=== PATIENT | male | born 1965 | race Caucasian/White ===

== ENCOUNTER 2025-04-26 08:53 | Emergency (ER) | payer OTHER ==
[2025-04-26] MEDS ORDERED: Ondansetron PF 4 MG/2 ML Vial ONE (09:42)
[2025-04-26 09:43] LABS: #Basophils 0.03 10x3/uL (0.0-0.2); #Eosinophils Less than 0.03 10x3/uL (0.0-0.5); #Monocytes 1.16 10x3/uL (0.0-1.1); #Neutrophils 19.97 10x3/uL (1.5-8.4); %Basophils 0.1 % (0.0-2.0); %Eosinophils 0.0 % (0.0-6.0); %Lymphocytes 6.0 % (18.0-47.0); %Monocytes 5.1 % (0.0-10.0); %Neutrophils 88.3 % (40.0-75.0); Hematocrit 40.9 % (38.8-50.0); Hemoglobin 14.8 g/dL (13.5-17.5); Mean Corpuscular Hemoglobin 30.5 pg (27.0-33.0); Mean Corpuscular Volume 84.3 fL (81.2-95.1); Platelet Count 214 10x3/uL (150-450); Red Blood Cell (RBC) Count 4.85 10x6/uL (4.32-5.72); White Blood Cell (WBC) Count 22.63 10x3/uL (3.5-10.5)
[2025-04-26 09:59] LABS: ALT (SGPT) 18 U/L (Less than 45); AST (SGOT) 18 U/L (11-34); Albumin 3.9 g/dL (3.1-4.5); Alkaline Phosphatase 101 U/L (40-110); Anion Gap 13 mmol/L (10-20); BUN (Urea Nitrogen) 13 mg/dL (8.4-25.7); Bilirubin, Total 1.0 mg/dL (0.3-1.2); Calc. Creatinine Clearance 0 mL/min (70-130); Calcium 9.1 mg/dL (7.8-10.44); Carbon Dioxide 23 mmol/L (23-31); Chloride 104 mmol/L (98-107); Globulin 3.1 g/dL (2.4-3.5); Glucose 228 mg/dL (80-115); Lipase 16 U/L (8-78); Magnesium 1.7 mg/dL (1.6-2.6); Potassium 3.8 mmol/L (3.5-5.1); Sodium 136 mmol/L (136-145)
[2025-04-26] MEDS ORDERED: Iopamidol 300 61% 100 ML VIAL FS ONE (12:13)
== END 2025-04-26 12:26 | disposition home or self-care (01) ==
LOC: CSHERS 08:53
DX: K57.32 Diverticulitis of large intestine without perforation or abscess without bleeding (principal); R73.9 Hyperglycemia, unspecified; R10.9 Unspecified abdominal pain; F17.210 Nicotine dependence, cigarettes, uncomplicated
CPT/HCPCS: 74177; 80053; 83690; 83735; 85025; 96374; 96375; J2270; J2405; Q9967